=== PATIENT | female | born 1940 | race Caucasian/White ===

== ENCOUNTER 2019-10-21 23:20 | Emergency (ER) | payer MEDICARE, OTHER ==
[~2019-10-21] VITALS: Ht 167.6 cm; Wt 86.2 kg
[2019-10-22] MEDS ORDERED: SILVER NITRATE SWABS ONE (00:37)
[2019-10-22 02:31] VITALS: BP 142/70
== END 2019-10-22 01:36 | disposition home or self-care (01) ==
LOC: FSED 23:20
DX: S91.111A Laceration without foreign body of right great toe without damage to nail, initial encounter (principal); W26.8XXA Contact with other sharp object(s), not elsewhere classified, initial encounter; Y93.89 Activity, other specified; Y92.009 Unspecified place in unspecified non-institutional (private) residence as the place of occurrence of the external cause; Y99.8 Other external cause status; Z88.6 Allergy status to analgesic agent; Z88.1 Allergy status to other antibiotic agents; Z88.0 Allergy status to penicillin; Z85.3 Personal history of malignant neoplasm of breast
CPT/HCPCS: 85025; 85610; 99283

== ENCOUNTER 2020-06-23 09:54 | Inpatient (IN) | payer MEDICARE, OTHER ==
[~2020-06-23] VITALS: Ht 167.6 cm; Wt 90.7 kg
[2020-06-23 10:36] LABS: BASOPHILS % 0.5 % (0.0-1.0); EOSINOPHILS # (AUTO) 0.2 (0.0-0.4); EOSINOPHILS % 2.8 % (0.0-6.0); HEMATOCRIT 39.8 % (34.2-44.1); HEMOGLOBIN 13.1 g/dL (12.0-16.0); LYMPHOCYTES # (AUTO) 1.3 (1.0-3.2); LYMPHOCYTES % 21.3 % (18.0-39.1); MEAN CORPUSCULAR HEMOGLOBIN 28.5 pg (28-32); MEAN CORPUSCULAR HGB CONC 32.9 g/dL (31-35); MEAN CORPUSCULAR VOLUME 86.7 fL (81-99); MONOCYTES # (AUTO) 0.6 (0.2-0.8); MONOCYTES % 9.2 % (4.4-11.3); NEUTROPHILS % 65.9 % (38.7-80.0); PLATELET COUNT 179 x10e3/uL (140-360); RED BLOOD COUNT 4.59 x10e6/uL (3.6-5.1); RED CELL DISTRIBUTION WIDTH 12.8 % (11.7-14.4)
[2020-06-23] MEDS ORDERED: METOPROLOL TAR100 MG (10:43)
[2020-06-23] MEDS ORDERED: LEVOTHYROXINE25 MCG (10:43)
[2020-06-23] MEDS ORDERED: ATORVASTATIN CA40 MG (10:43)
[2020-06-23] MEDS ORDERED: GABAPENTIN300 MG (10:43)
[2020-06-23] MEDS ORDERED: GLIPIZIDE5 MG (10:43)
[2020-06-23] MEDS ORDERED: FUROSEMIDE20 MG (10:43)
[2020-06-23] MEDS ORDERED: LATANOPROST2.5 ML (10:43)
[2020-06-23] MEDS ORDERED: K DUR10 MEQ (10:43)
[2020-06-23] MEDS ORDERED: ALENDRONATE SOD70 MG (10:43)
--- OUTSIDE RECORDS SUMMARY | 2020-06-23 10:48 | XMS REPORT | Clinical Summary ---
Author Author [facility] Address Unknown Phone Unavailable Care Team Providers Care Sky Diver Name Role Phone Ayesha Rojas MD PCP [phone] Allergies Comments Active Allergy Reactions Severity Noted Date Codeine Itching 08/26/2014 Joint pain Levofloxacin 08/26/2014 Rash if injection Penicillins Rash Low 08/26/2014 Medications End Date Status Medication Sig Dispensed Refills Start Date Active metoprolol (LOPRESSOR) 50 Take 50 mg by 0 MG tablet mouth 2 (two) times daily. Active levothyroxine (SYNTHROID, Take 75 mcg 0 LEVOTHROID) 75 MCG tablet by mouth daily. Active warfarin (COUMADIN) 4 MG Take 4 mg by 0 tablet mouth daily 1 tablet Tues and Thurs and 0.5 tabs all other days. Active HYDROcodone-acetaminophen Take 1 tablet 0 (NORCO 5-325) 5-325 mg by mouth 3 per tabletIndications: (three) times pain daily. Active atorvastatin (LIPITOR) 40 Take 40 mg by 0 MG tablet mouth daily. Active coenzyme [id number] E 1 capsule. 0 01 (CO Q-10, WITH VIT E,) 8 100-5 mg-unit Cap Active tamoxifen (NOLVADEX) 20 TAKE ONE 0 MG tablet TABLET BY 9 MOUTH EVERY DAY Active gabapentin (NEURONTIN) TAKE 2 0 300 MG capsule CAPSULES BY 9 MOUTH EVERY MORNING AND 2 CAPSULES EVERY EVENING AND 3 CAPSULES AT BEDTIME Active lisinopril Take 10 mg by 0 (PRINIVIL,ZESTRIL) 10 MG mouth. 9 tablet Active latanoprost (XALATAN) 1 drop. 0 08/21/19 1 0.005 % ophthalmic 9 solution Active cyanocobalamin (VITAMIN Take 1,000 0 B-12) 1000 MCG tablet mcg by mouth. Active cholecalciferol (VITAMIN Take by 0 D3) 1,000 unit (25 mcg) mouth. tablet Active Problems Problem Noted Date Breast cancer, right 04/19/2017 Family History Relation Name Status Comments Father Mother Social History Date Tobacco Use Types Packs/Day Years Used Never Smoker Smokeless Tobacco: Never Used Drinks/Week oz/Week Comments Alcohol Use No Sex Assigned at Date Recorded Not on file Last Filed Vital Signs Not on file Plan of Treatment Health Maintenance Due Date Last Done Comments PNEUMOCOCCAL 65+ YRS (2 10/14/2003 03/02/2017 of 2 - PPSV23) MEDICARE ANNUAL WELLNESS 07/26/2009 (YEAR 2 or FIRST YEAR if no IPPE) INFLUENZA VACCINE (#1) 2020 05/03/2018, 05/21/2016 Results Not on fileafter 06/23/2019 Insurance Type Payer Benefit Subscriber ID Effective Phone Address Plan / Dates Group Maps Contracted [employer] TEX[employer] [id number] 2008-P HMO ALL resent -[id number] Advance Directives For more information, please contact: [phone] Date Inactivated Comments Code Status Date Activated 04/19/2017 4:50 PM Full Code 04/19/2017 9:58 AM This code status was determined by: Patient 08/27/2014 6:02 PM Full Code 08/27/2014 1:21 PM This code status was determined by: Patient
--- OUTSIDE RECORDS SUMMARY | 2020-06-23 10:48 | XMS REPORT | Continuity of Care Document ---
Author Author [facility] t Organization [facility] Address [address] [place] [address] Phone Unavailable Care Team Providers Care Export Agent Name Role Phone MARIO ALBERTO BUI, TOSIN PCP ANNA VASQUES Attphys Unavailable ISIDORO, MEÑO JUAREZ Attphys Unavailable ISIDORO, MEÑO JUAREZ Admphys Unavailable Payers Payer Name Policy Type Policy Number Effective Date Expiration Date Kizzy topete [facility] [id number] 2019 00:00:00 [facility] Problems Condition Name Condition Details Condition Category Status Onset Date Resolution Date Last Treatment Date Treating Clinician Comments Source Breast cancer, right Breast cancer, right Disease Active 00:00:00 [facility] Allergies, Adverse Reactions, Alerts Allergy Name Allergy Type Status Severity Reaction(s) Onset Date Inacti ve Date Treating Clinician Comments Source Penicillins DA Active U 2019-07-25 00:00:00 [facility] levofloxacin DA Active U 2019-07-25 00:00:00 [facility] Penicillins DA Active U 2015-11-19 00:00:00 [facility] Codeine Propensity to adverse reactions Active Itching 00:00:00 [facility] Levofloxacin Propensity to adverse reactions Active 201 11-23-01 00:00:00 Joint pain [facility] Penicillins Drug Allergy Active Rash 2014-08-26 00:00:00 Rash if injection [facility] Social History Social Habit Start Date Stop Date Quantity Comments Source Sex Assigned At [facility] Tobacco use and exposure 2019-05-02 00:00:00 2019-05-02 00:00:00 Reyes doherty used [facility] Alcohol intake 2019-05-02 00:00:00 2019-05-02 00:00:00 Current non-drinker of alcohol (finding) [facility] Alejandro doherty Smoking Status Start Date Stop Date Source Never smoker [facility] Medications Ordered Medication Name Filled Medication Name Start Date Stop Da te Current Medication? Ordering Clinician Indication Dosage Frequency Signature (SIG) Comments Components Source cyanocobalamin (VITAMIN B-12) 1000 MCG tablet 2019-05-02 11:43:4 7 Yes 1000ug Take 1,000 mcg by mouth. [facility] cholecalciferol (VITAMIN D3) 1,000 unit (25 mcg) tablet 2019-05-02 11:43:47 Yes Take by mouth. [facility] lisinopril (PRINIVIL,ZESTRIL) 10 MG tablet 2019-03-01 00:00:00 Yes 10mg Take 10 mg by mouth. [facility] gabapentin (NEURONTIN) 300 MG capsule 2019-02-28 00:00:00 Y es TAKE 2 CAPSULES BY MOUTH EVERY MORNING AND 2 CAPSULES EVERY EVENING AND 3 CAPSULES AT BEDTIME [facility] tamoxifen (NOLVADEX) 20 MG tablet 2018-11-30 00:00:00 Yes TAKE ONE TABLET BY MOUTH EVERY DAY [facility] latanoprost (XALATAN) 0.005 % ophthalmic solution 2018-08-21 00:00:00 Yes 1[drp] 1 drop. [facility] coenzyme K39-lddacen E (CO Q-10, WITH VIT E,) 100-5 mg-unit Cap 2017-08-11 00:00:00 Yes 1{capsule} 1 capsule. [facility] metoprolol (LOPRESSOR) 50 MG tablet 2017-04-19 14:50:40 Yes 50mg Q.5D Take 50 mg by mouth 2 (two) times daily. [facility] levothyroxine (SYNTHROID, LEVOTHROID) 75 MCG tablet 04-19 14:50:40 Yes 75ug QD Take 75 mcg by mouth daily. [facility] warfarin (COUMADIN) 4 MG tablet 2017-04-19 14:50:40 Yes 4mg QD Take 4 mg by mouth daily 1 tablet Tues and Thurs and 0.5 tabs all other days. [facility] HYDROcodone-acetaminophen (NORCO 5-325) 5-325 mg per tablet 2017-04-19 14:50:40 Yes pain 1{tbl} Q.[id number] 3D Take 1 tablet by mouth 3 (three) times daily. [facility] atorvastatin (LIPITOR) 40 MG tablet 2017-04-19 14:50:40 Yes 40mg QD Take 40 mg by mouth daily. [facility] Procedures This patient has no known procedures. Plan of Care Planned Activity Planned Date Details Comments Source Future Scheduled Test 2020-03-25 00:00:00 INFLUENZA VACCINE (#1) [code = INFLUENZA VACCINE (#1)] [facility] Future Scheduled Test 2009-07-26 00:00:00 MEDICARE ANNUAL WE LLNESS (YEAR 2 or FIRST YEAR if no IPPE) [code = MEDICARE ANNUAL WELLNESS (YEAR 2 or FIRST YEAR if no IPPE)] [facility] Future Scheduled Test 2003-10-14 00:00:00 PNEUMOCOCCAL 65+ Y RS (2 of 2 - PPSV23) [code = PNEUMOCOCCAL 65+ YRS (2 of 2 - PPSV23)] [facility] Encounters Start Date/Time End Date/Time Encounter Type Admission Type Attendi [facility] Care Department Encounter ID Source 2019-10-21 23:20:00 2019-10-22 01:36:00 Departed Emergency Room [facility] [id number] [facility] Results Test Description Test Time Test Comments Results Result Comments Source URINALYSIS COMPLETE 2019-07-25 21:38:00 Test Item UA COLOR (test code = COLU) RED YELLOW A UA APPEARANCE (test code = APPU) OPAQUE CLEAR A UA GLUCOSE DIPSTICK (test code = DGLUU) NEGATIVE mg/dL NEGATIVE UA BILIRUBIN DIPSTICK (test code = BILU) NEGATIVE NEGATIVE UA KETONE DIPSTICK (test code = KETU) NEGATIVE mg/dL NEGATIVE UA SPECIFIC GRAVITY (test code = SGU) 1.010 1.001-1.035 UA BLOOD DIPSTICK (test code = GILMA) 3+ (Large) NEGATIVE A UA PH DIPSTICK (test code = EDWARD) 7.0 5.0-8.0 UA PROTEIN DIPSTICK (test code = PROU) 100 (2+) mg/dL Neg-15 UA UROBILINIOGEN DIPSTICK (test code = URO) 0.0-0.2 (NORMAL) mg/dL 0.0-0.2 UA NITRITE DIPSTICK (test code = SETH) NEGATIVE NEGATIVE UA LEUKOCYTE ESTERASE W REFLEX (test code = LEUUR) 2+ NEG ATIVE A UA WBC (test code = WBCU) 21-50 per HPF 0-5 A UA RBC (test code = RBCU) >200 #/HPF 0-5 UA EPITHELIAL CELLS (test code = EPIU) None seen per HPF FEW UA BACTERIA (test code = BACU) NONE SEEN #/HPF NONE Urine Source? Clean CatchURINALYSIS [id number] 21:37:00* Test Item Value Reference Range Interpretation Comments UA COLOR (test code = COLU) RED YELLOW A UA APPEARANCE (test code = APPU) OPAQUE CLEAR A UA GLUCOSE DIPSTICK (test code = DGLUU) NEGATIVE mg/dL NEGATIVE UA BILIRUBIN DIPSTICK (test code = BILU) NEGATIVE NEGATIVE UA KETONE DIPSTICK (test code = KETU) NEGATIVE mg/dL NEGATIVE UA SPECIFIC GRAVITY (test code = SGU) 1.010 1.001-1.035 UA BLOOD DIPSTICK (test code = IGLMA) 3+ (Large) NEGATIVE A UA PH DIPSTICK (test code = EDWARD) 7.0 5.0-8.0 UA PROTEIN DIPSTICK (test code = PROU) 100 (2+) mg/dL Neg-15 UA UROBILINIOGEN DIPSTICK (test code = URO) 0.0-0.2 (NORMAL) mg/dL 0.0-0.2 UA NITRITE DIPSTICK (test code = SETH) NEGATIVE NEGATIVE UA LEUKOCYTE ESTERASE W REFLEX (test code = LEUUR) 2+ NEG ATIVE A UA WBC (test code = WBCU) per HPF 0-5 UA RBC (test code = RBCU) per HPF 0-5 UA EPITHELIAL CELLS (test code = EPIU) per HPF Few UA BACTERIA (test code = BACU) per HPF NONE Urine Source? Clean CatchBASIC METABOLIC [id number] 21:04:00* Test Item Value Reference Range Interpretation Comments SODIUM (test code = NA) 141 mmol/L 136-145 N POTASSIUM (test code = K) 4.0 mmol/L 3.5-5.1 N CHLORIDE (test code = CL) 107.0 mmol/L 98-107 N CARBON DIOXIDE (test code = CO2) 27.0 mmol/L 21-32 N ANION GAP (test code = GAP) 11.0 10-20 N GLUCOSE (test code = GLU) 155 mg/dL 74-106 H BLOOD UREA NITROGEN (test code = BUN) 23 mg/dL 7-18 H GLOMERULAR FILTRATION RATE (test code = GFR) 31 mL/min >=60 Estimated GFR by using Modified MDRD formula.Chronic kidney disease is defined as either kidney damageor GFR <60 mL/min/1.73 m2 for >3 months. CREATININE (test code = CREAT) 1.60 mg/dL 0.55-1.02 H Note change in reference range due to change in reagent. BUN/CREATININE RATIO (test code = BUN/CREA) 14.4 10-20 N CALCIUM (test code = CA) 8.5 mg/dL 8.5-10.1 N HEPATIC FUNCTION [id number] 21:04:00* Test Item Value Reference Range Interpretation Comments TOTAL PROTEIN (test code = PROT) 6.2 gram/dL 6.4-8.2 L ALBUMIN (test code = ALB) 3.0 g/dL 3.4-5.0 L GLOBULIN (test code = GLOB) 3.2 gram/dL 2.7-4.2 N ALBUMIN/GLOBULIN RATIO (test code = A/G) 0.9 0.75-1.50 N BILIRUBIN TOTAL (test code = BILT) 0.50 mg/dL 0.0-1.0 N BILIRUBIN DIRECT (test code = BILD) 0.10 mg/dL 0.0-0.20 N SGOT/AST (test code = AST) 17 IUnit/L 15-37 N SGPT/ALT (test code = ALT) 19 IUnit/L 12-78 N ALKALINE PHOSPHATASE TOTAL (test code = ALKP) 74 IUnit/L 45-117 N Note change in reference range due to change in reagent. BASIC METABOLIC [id number] 20:54:00* Test Item Value Reference Range Interpretation Comments SODIUM (test code = NA) 141 mmol/L 136-145 N POTASSIUM (test code = K) 4.0 mmol/L 3.5-5.1 N CHLORIDE (test code = CL) 107.0 mmol/L 98-107 N CARBON DIOXIDE (test code = CO2) mmol/L 21-32 ANION GAP (test code = GAP) 10-20 GLUCOSE (test code = GLU) mg/dL 74-106 BLOOD UREA NITROGEN (test code = BUN) mg/dL 7-18 GLOMERULAR FILTRATION RATE (test code = GFR) mL/min >=60 CREATININE (test code = CREAT) mg/dL 0.55-1.02 BUN/CREATININE RATIO (test code = BUN/CREA) 10-20 CALCIUM (test code = CA) mg/dL 8.5-10.1 HEPATIC FUNCTION [id number] 20:54:00* Test Item Value Reference Range Interpretation Comments TOTAL PROTEIN (test code = PROT) gram/dL 6.4-8.2 ALBUMIN (test code = ALB) g/dL 3.4-5.0 GLOBULIN (test code = GLOB) gram/dL 2.7-4.2 ALBUMIN/GLOBULIN RATIO (test code = A/G) 0.75-1.50 BILIRUBIN TOTAL (test code = BILT) mg/dL 0.0-1.0 BILIRUBIN DIRECT (test code = BILD) mg/dL 0.0-0.20 SGOT/AST (test code = AST) IUnit/L 15-37 SGPT/ALT (test code = ALT) IUnit/L 12-78 ALKALINE PHOSPHATASE TOTAL (test code = ALKP) IUnit/L 45-117 CBC W/O [id number] 20:51:00* Test Item Value Reference Range Interpretation Comments WHITE BLOOD CELL (test code = WBC) 6.5 K/mm3 4.5-12.5 N RED BLOOD CELL (test code = RBC) 4.19 mill/mm3 3.7-5.2 N HEMOGLOBIN (test code = HGB) 12.1 gram/dL 11.5-15.5 N HEMATOCRIT (test code = HCT) 36.1 % 36.0-46.0 N MEAN CELL VOLUME (test code = MCV) 86.2 fL 80-98 N MEAN CELL HGB (test code = MCH) 28.9 picogram 27.0-33.0 N MEAN CELL HGB CONCETRATION (test code = MCHC) 33.5 gram/dL 33.0-36. 0 N RED CELL DISTRIBUTION WIDTH (test code = RDW) 13.0 % 11.6-16. 2 N PLATELET COUNT (test code = PLT) 192 K/mm3 150-450 N MEAN PLATELET VOLUME (test code = MPV) 9.2 fL 6.7-11.0 N PROTHROMBIN [id number] 20:49:00* Test Item Value Reference Range Interpretation Comments PROTHROMBIN TIME PATIENT (test code = PTP) 40.9 seconds 9.0-14.0 H INTERNATIONAL NORMAL RATIO (test code = INR) 3.5 0.8-1.2 H The therapeutic range for oral anticoagulant therapy formost indications is an international normalized ratio (INR)of between 2.0 and 3.0. The recommended therapeutic INRrange for various clinical situations is listed below: Clinical Situation INR range Pulmonary e mbolism treatment (2.0-3.0)Venous thrombosis treatmentVenous thrombosis prophylaxis (high risk surgery)Prevention of systemic embolism from: Acute myocardial infarction Valvular heart disease Atrial fibrillation Mechanical prosthetic heart valves (2.5-3.5) IS PATIENT ON ANTICOAGULANTS? NCBC W/O [id number] 20:46:00* Test Item Value Reference Range Interpretation Comments WHITE BLOOD CELL (test code = WBC) K/mm3 4.5-12.5 RED BLOOD CELL (test code = RBC) mill/mm3 3.7-5.2 HEMOGLOBIN (test code = HGB) 12.1 gram/dL 11.5-15.5 N HEMATOCRIT (test code = HCT) 36.1 % 36.0-46.0 N MEAN CELL VOLUME (test code = MCV) fL 80-98 MEAN CELL HGB (test code = MCH) picogram 27.0-33.0 MEAN CELL HGB CONCETRATION (test code = MCHC) gram/dL 33.0-36. 0 RED CELL DISTRIBUTION WIDTH (test code = RDW) % 11.6-16. 2 PLATELET COUNT (test code = PLT) K/mm3 150-450 MEAN PLATELET VOLUME (test code = MPV) fL 6.7-11.0 B-TYPE NATRIURETIC FACTOR (BNP)2019-05-02 12:30:00* Test Item Value Reference Range Interpretation Comments B-TYPE NATRIURETIC PEPTIDE (BEAKER) (test code = 700) 239 pg/mL 0-100 H RAPID TROPONIN [id number] 12:27:00* Test Item Value Reference Range Interpretation Comments RAPID TROPONIN I (BEAKER) (test code = 1483) < ng/mL <0.05 BASIC METABOLIC [id number] 12:26:00* Test Item Value Reference Range Interpretation Comments SODIUM (BEAKER) (test code = 381) 141 meq/L 135-148 POTASSIUM (BEAKER) (test code = 379) 4.6 meq/L 3.6-5.5 CHLORIDE (BEAKER) (test code = 382) 104 meq/L 98-106 CO2 (BEAKER) (test code = 355) 21 meq/L 24-32 L BLOOD UREA NITROGEN (BEAKER) (test code = 354) 21 mg/dL 10-26 CREATININE (BEAKER) (test code = 358) 1.05 mg/dL 0.50-1.20 GLUCOSE RANDOM (BEAKER) (test code = 652) 119 mg/dL 70-110 H CALCIUM (BEAKER) (test code = 697) 9.4 mg/dL 8.5-10.5 EGFR (BEAKER) (test code = 1092) 50 mL/min/1.73 sq m ESTIMATED GFR IS NOT ACCURATE CREATININE CLEARANCE IN PREDICTING GLOMERULAR FILTRATION RATE. ESTIMATED GFR IS NOT APPLICABLE FOR DIALYSIS PATIENTS. [id number] 12:26:00* Test Item Value Reference Range Interpretation Comments MAGNESIUM (BEAKER) (test code = 627) 1.7 mg/dL 1.5-3.0 PT/[id number] 12:26:00* Test Item Value Reference Range Interpretation Comments PROTIME (BEAKER) (test code = 759) 11.4 seconds 9.8-12.0 INR (BEAKER) (test code = 370) 1.1 <=5.9 PARTIAL THROMBOPLASTIN TIME (BEAKER) (test code = 760) 24.0 seconds 25.8-34.5 L RECOMMENDED COUMADIN/WARFARIN INR THERAPY RANGESSTANDARD DOSE: 2.0 - 3.0 Inclu martha: PROPHYLAXIS for venous thrombosis, systemic embolization; TREATMENT for diane ous thrombosis and/or pulmonary embolus.HIGH RISK: Target INR is 2.5-3.5 for pat ients with mechanical heart valves.CBC W/PLT COUNT & AUTO [id number] 12:19:00* Test Item Value Reference Range Interpretation Comments WHITE BLOOD CELL COUNT (BEAKER) (test code = 775) 9.7 K/ L 4.0- 10.0 RED BLOOD CELL COUNT (BEAKER) (test code = 761) 5.24 M/ L 4.00-5 .00 H HEMOGLOBIN (BEAKER) (test code = 410) 15.6 GM/DL 12.0-15.0 H HEMATOCRIT (BEAKER) (test code = 411) 45.9 % 36.0-45.0 H MEAN CORPUSCULAR VOLUME (BEAKER) (test code = 753) 87.6 fL 82. 0-99.0 MEAN CORPUSCULAR HEMOGLOBIN (BEAKER) (test code = 751) 29.8 pg 27.0-33.0 MEAN CORPUSCULAR HEMOGLOBIN CONC (BEAKER) (test code = 752) 34.0 GM/DL 32.0-36.0 RED CELL DISTRIBUTION WIDTH (BEAKER) (test code = 412) 11.3 % 10.3-14.2 PLATELET COUNT (BEAKER) (test code = 756) 222 K/CU MM 150-430 MEAN PLATELET VOLUME (BEAKER) (test code = 754) 7.2 fL 6.5-10 .5 NEUTROPHILS RELATIVE PERCENT (BEAKER) (test code = 429) 80 % LYMPHOCYTES RELATIVE PERCENT (BEAKER) (test code = 430) 12 % MONOCYTES RELATIVE PERCENT (BEAKER) (test code = 431) 7 % EOSINOPHILS RELATIVE PERCENT (BEAKER) (test code = 432) 1 % BASOPHILS RELATIVE PERCENT (BEAKER) (test code = 437) 0 % NEUTROPHILS ABSOLUTE COUNT (BEAKER) (test code = 670) 7.80 K/ L 1.80-8.00 LYMPHOCYTES ABSOLUTE COUNT (BEAKER) (test code = 414) 1.12 K/ L 1.48-4.50 L MONOCYTES ABSOLUTE COUNT (BEAKER) (test code = 415) 0.66 K/ L 0. 00-1.30 EOSINOPHILS ABSOLUTE COUNT (BEAKER) (test code = 416) 0.10 K/ L 0.00-0.50 BASOPHILS ABSOLUTE COUNT (BEAKER) (test code = 417) 0.04 K/ L 0. 00-0.20 RAD, CHEST, PA OR AP, 1 [id number] 12:17:00Reason for exam:-> palpitationsShould this be performed at the bedside?->NoFINAL REPORT INDICATION: palpitations COMPARISON: June 23, 2010 TECHNIQUE: Single frontal view of the chest. FINDINGS: Lungs and pleura: Clear lungs. No effusion.Heart and mediastinum: Normal heart size. Unremarkable mediastinal contours.Osseous structures: No acute abnormality.Other: None. IMPRESSION: No acute intrathoracic abnormality. Signed: JR Miles Robert MDReport Verified Date/Time: 05/02/2019 12:17:02 Reading Location: [facility] Radiology Reading Room UE [id number] 07:57:00Surgical Pathology Report Case: [id number] Authorizing Provider: Omar Campbell MD Collected: 04/19/2017 1158 Ordering Location: [facility] Received: 04/19/2017 1249 SERVICES Pathologist: Tamara Ibrahim MD Specimens: A) - Breast, Right, right breast lumpectomy, short stitch superior, long stitch lateral B) - Lymph Node, [place], Right Axilla, right axillary sentinel lymph node REASON FOR ADDENDUM: TO REPORT ONCOTYPE RESULT.RECURRENCE SCORE RESULT: [id number] RISK OF DISTANT RECURRENCE: AADIR ALONE 9% Addendum electronically signed by Tamara Ibrahim MD on 06/23/2017 at 7:57 AMA. BREAST, RIGHT, LUMPECTOMY: - INFILTRATING LOBULAR CARCINOMA, VARIANT SUBTYPE - GREATEST MACROSCOPIC DIMENSION:19 MM - HISTOLOGIC GRADE: 2/3 (3+2+2)BY ESBR CRITERIA - MITOTIC INDEX: 16 MITOSIS /10 HPF - NO LYMPHOVASCULAR INVASION SEEN - SURGICAL MARGINS: NEGATIVE - POSTERIOR MARGIN AT 2 MM - ANTERIOR MARGIN AT 5 MM - ALL OTHER MARGINS AT MORE THAN 10 MM - LOBULAR CARCINOMA IN SITU, FOCAL - ATYPICAL LOBULAR HYPERPLASIA - COLUMNAR CELL HYPERPLASIA - COLUMNAR CELL CHANGES - BIOPSY SITE (CLIP X 1) IDENTIFIED - MICROCALCIFICATIONS ASSOCIATED WITH BENIGN DUCTS B. LYMPH NODE, RIGHT SENTINEL, BIOPSY: - TWO BENIGN LYMPH NODES (0/2) - CONFIRMED BY N EGATIVE TREJO-CYTOKERATIN IMMUNOSTAIN Signing Pathologist Direct Phone Line: [phone] signed by Tamara Ibrahim MD on 04/25/2017 at 5 :26 PMTUMOR STAGING (PATHOLOGY): Anatomic site of tumor: Right breast Histologic type: Infiltrating lobular carcinoma, variant subtypeHistologic grade: 2/3 by E SBR criteria Tumor size: 19 mm Primary tumor (T): pT1c Lymph node (N): pN0 (sn) Stage grouping: IA Margins: Negative LYMPH NODE SUMMARY:Total number of sentinel lymph nodes: 2Total number of non-sentinel lymph nodes: 0 Total number of posit raquel sentinel lymph nodes: 0 INVASIVE CARCINOMA OF THE BREAST (Breast Invasive - All Specimens)SPECIMEN Procedure: Excision without image-guided localizati on Lymph Node Sampling: [place] lymph node(s) Specimen Laterality: Ri ghtTUMOR Presence of Invasive Carcinoma: Histologic Type: Invasive lobular carcinoma Histologic Grade (Raymond Histologic Score): Glandular (Acinar) / Tubular Differentiation: Score 3 (< 10% of tumor area forming glandular / tubular structures) Nuclear Pleomorphism: Score 2 (Cells larger than normal with open vesicular nuclei, visible nucleoli, and moderate variability in both size and shape) Mitotic Rate: Score 2 (4-7 mitoses per mm2) Overall Grade: Grade 2 (scores of 6 or 7) Ductal Carcinoma In Situ (DCIS): No DCIS is present Lobular Carcinoma In Situ (LCIS): Present Tumor Size / Focality: Tumor Size: Size of Largest Invasive Carcinoma: Greatest dimension of largest focus of invasion > 1 mm Greatest Dimension (mm): 19 mm Lymph-Vascular Invasion: Not identified Microcalcifications: Present in nonneoplastic tissue Niraj atment Effect: Response to Presurgical (Neoadjuvant) Therapy: No known presur gical therapyMARGINS Invasive Carcinoma: Margins uninvolved by invasive car cinoma Distance from Closest Margin: Distance (specify in mm): 2MM Cl osest Uninvolved Margin: Posterior Ductal Carcinoma In Situ (DCIS): DCIS not present in specimenLYMPH NODES Regional Lymph Nodes: [place] Node Status: [place] lymph node biopsy performed Number of [place] Nodes Examined: Specify number: 2 Method of Evaluation of [place] Lymph Nod e(s): H&E, multiple levels Method of Evaluation of [place] Lymph Node(s): Immunohistochemistry Number of Lymph Node(s) Examined (sentinel and nonsentinel): Specify number: 2STAGE (pTNM) Primary Tumor (Invasive Carcinoma) (pT): pT1c: Tumor > 10 mm but <= 20 mm in greatest dimension Modifier: (sn): Only sentinel node(s) evaluated. If 6 or more nodes (sentinel or nonsentinel) are removed, this modifier should not be used. Category (pN): pN0: No regional lymph node metastasis identified histologicallyA. 50040Z. 44734, 54096, 91129Vcbexa cancer upper outer quadrant of right female breastA. Right breast, description "right breast lumpectomy, short superior, long stitch lateral; B. Right axillary sentinel lymph nodePart A: The specimen is received in formalin labeled with the patient's name, medical record number and "right breast" with the description "right breast lumpectomy, short stitch superior, long stitch lateral". It consists of a 9.5 gm, 6 cm from superior to inferior, 6 cm from medial to lateral and 2.5 cm from superficial to deep, morgan-yellow lumpectomy specimen. There is a short designating superior and a long stitch designating lateral. No guide wire is present.The specimen is serially sectioned from medial to lateral into 9 slices. A ggz-tdd-lmfjp, irregular, firm lesion is identified in slices #3 to 7. The lesion measures 1.4 cm from superior to inferior, 2.5 cm from medial to lateral and 1.3 cm from superficial to deep. It is located 2 cm from superior margin, 0.8 cm from the inferior margin, 0.7 cm from the medial margin, 1 cm from the lateral margin, and 1 cm from the anterior margin. The lesion abuts the deep margin. There is another morgan-white rubbery lesion identified in slices #2 and 3. It measures 1 cm from superior to inferior, 0.8 cm from medial to lateral and 0.9 cm from superficial to deep. It abuts the anterior and deep margins. A ribbon shaped metal clip is identified a ssociated with the lesion. The remainder of the breast tissue is composed of 80% adipose and 20% fibrous tissue.Ink code: Superior-blue, inferior-red, posterior- black, anterior-yellow.Section code: career representative sections are submitted as olayinka schmidt. A1-A3, medial margin perpendicular section in its entirety; A4-A5, slice #2; A6-A8, slice #3 entirely; A9-A13, slice #4 entirely; A14-A19, slice #5 enti rely; A20-A22, slice #6 mass; A23, slice #7 mass; A24, slice #8 area lateral to mass; A25-A28, slice #9, lateral margin perpendicular section in its entirety. L S/ewPart B: Received in formalin labeled "lymph node, sentinel, right axilla" is a 6.5 x 4.0 x 2.5 cm aggregate of yellow-morgan adipose tissue. Sectioning reveals two pink-morgan to yellow possible lymph nodes each measuring 2.0 cm in greatest d imension.The lymph nodes are bisected and entirely submitted in cassettes B1-B2 with one bisected lymph node in each cassette. DB/Josie. - B. Performed.The follow ing special studies were performed on this case and the interpretation is incorp orated in the diagnostic report above:TREJO-CYTOKERATIN PERFORMED ON BLOCKS B1 AND B2The immunohistochemistry test was developed and its performance characteristi cs determined by [facility], Pathology Laboratory. It has not been cleared or approved by the U.S. Food and Drug Administration. The FDA has d etermined that such clearance or approval is not necessary. The test is used for clinical purposes. It should not be regarded as investigational or for research. This laboratory is certified under the Clinical Laboratory Improvement Amendme nts of 1987 (CLIA-88) as qualified to perform high complexity clinical laborator y testing.[facility], Department of Pathology, [address] [place] [address], [place] [address], EHNJFFLEWOS TIME/[id number] 10:32:00* Test Item Value Reference Range Interpretation Comments PROTIME (BEAKER) (test code = 759) 14.7 seconds 11.7-14.7 INR (BEAKER) (test code = 370) 1.2 <=5.9 RECOMMENDED COUMADIN/WARFARIN INR THERAPY RANGESSTANDARD DOSE: 2.0 - 3.0 Inclu martha: PROPHYLAXIS for venous thrombosis, systemic embolization; TREATMENT for diane ous thrombosis and/or pulmonary embolus.HIGH RISK: Target INR is 2.5-3.5 for pat ients with mechanical heart valves.
[2020-06-23 10:53] LABS: INR 2.14; PARTIAL THROMBOPLASTIN TIME 34.9 seconds (23.8-35.5); PROTHROMBIN TIME 24.9 seconds (11.9-14.5)
--- NOTE | 2020-06-23 10:54 | Diagnostic Imaging Report ---
EXAMINATION: CHEST SINGLE (PORTABLE) INDICATION: Shortness of breath COMPARISON: None FINDINGS: LINES/TUBES:EKG leads overlie the chest. LUNGS:The lungs are well-inflated. No focal consolidation or pulmonary edema. PLEURA:No pleural effusion or pneumothorax. MEDIASTINUM:The cardiomediastinal silhouette appears normal in size and shape. Atherosclerotic calcifications of the thoracic aorta. BONES/SOFT TISSUES:No acute osseous injury. ABDOMEN:No free air under the diaphragm. IMPRESSION: No focal pneumonia or pulmonary edema. Signed by: Dean Rhoades MD on 06/23/2020 10:51 AM
[2020-06-23] MEDS ORDERED: WARFARIN SODIUM4 MG (10:58)
[2020-06-23 10:59] LABS: ALBUMIN 3.5 g/dL (3.5-5.0); ALBUMIN/GLOBULIN RATIO 1.1 (0.8-2.0); ANION GAP 14.8 mmol/L (8-16); CALCIUM 8.6 mg/dL (8.4-10.2); CREATININE, SERUM 1.11 mg/dL (0.57-1.11); POTASSIUM 3.8 mmol/L (3.5-5.1)
[2020-06-23 11:08] LABS: CREATINE KINASE MB 2.2 ng/mL (0-5.0)
--- NOTE | 2020-06-23 11:08 | Emergency Department Note ---
History of Present Illnes History of Present Illness Chief Complaint: Respiratory History of Present Illness This is a 79 year old female PATIENT IN FROM HOME WITH COMPLAINTS OF SHORTNESS OF BREATH ON EXERTION; WORSENING SINCE TUESDAY. PATIENT REPORTS HISTORY OF CHF, STATES DR LLANES SENT HER TO THE ER FOR EVALUATION. PATIENT STATES THAT WALKING MAKES THE SHORTNESS OF BREATH WORSE, AND SITTING STILL MAKES IT BETTER. PATIENT TACHYPNEIC DURING TRIAGE, O2 SATS 978% ON ROOM AIR. 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 Any updates have been documented here. Past Medical History Recent Fever: No Clinical Suspicion of Infectio: No New/Unexplained Change in Ment: No Past Medical History: Hypertension, Diabetes, CHF, A-Fib, Hypothyroidism, Cancer, Hyperlipedemia Other Medical History: HEART MUMUR POSSIBLE BREAST CANCER OSTEOPOROSIS Other Surgery: BREAST LUMPECTOMY Social History Smoking Cessation: Never Smoker Counseling Performed: No Alcohol Use: None Any Illegal Drug Use: No TB Exposure/Symptoms: No Physically hurt or threatened: No Family History Family history of heart diseas: No Other Any Pre-Existing Lines (PICC,: No Review of Systems Review of Systems Constitutional: Reports no symptoms EENTM: Reports no symptoms Cardiovascular: Reports edema Respiratory: Reports as per HPI, Reports dyspnea, Reports dyspnea on exertion Gastrointestinal: Reports no symptoms Genitourinary: Reports no symptoms Musculoskeletal: Reports no symptoms Integumentary: Reports no symptoms Neurological: Reports no symptoms Psychological: Reports no symptoms Endocrine: Reports no symptoms Hematological/Lymphatic: Reports no symptoms Physical Exam Related Data Allergies: Coded Allergies: Penicillins (Verified Allergy, Severe, ITCHING, 06/23/20) Triage Vital Signs Vital Signs Date Time Temp Pulse Resp B/P (MAP) Pulse Ox O2 Delivery O2 Flow Rate FiO2 06/23/20 09:54 98.2 76 30 161/76 98 Room Air Vital signs reviewed: Yes Physical Exam CONSTITUTIONAL Constitutional: Present well-developed, Present well-nourished HENT HENT: Present normocephalic, Present atraumatic, Present oropharynx clear/moist, Present nose normal HENT L/R: Present left ext ear normal, Present right ext ear normal EYES Eyes: Reports PERRL, Reports conjunctivae normal NECK Neck: Present ROM normal PULMONARY Pulmonary: Present effort normal, Present respiratory distress (TACHYPNEIC ~26 BUT PT APPEARS COMFORTABLE) CARDIOVASCULAR Cardiovascular: Present regular rhythm, Present heart sounds normal, Present capillary refill normal, Present normal rate, Present murmur (2/6 HIGH-PITCHED SYS MURMUR) GASTROINTESTINAL Abdominal: Present soft, Present nontender, Present bowel sounds normal GENITOURINARY Genitourinary: Present exam deferred SKIN Skin: Present warm, Present dry MUSCULOSKELETAL Musculoskeletal: Present ROM normal, Present edema (2+ EDEMA LEFT LE, 1+ RLE - STATES THIS IS CHRONIC, (-) HILARY'S/NO CALF TTP) NEUROLOGICAL Neurological: Present alert, Present oriented x 3, Present no gross motor or sensory deficits PSYCHOLOGICAL Psychological: Present mood/affect normal, Present judgement normal Results Laboratory Result Diagram: 06/23/20 1020 Laboratory Laboratory Tests Test 06/23/20 10:20 White Blood Count 6.06 x10e3/uL (4.8-10.8) Red Blood Count 4.59 x10e6/uL (3.6-5.1) Hemoglobin 13.1 g/dL (12.0-16.0) Hematocrit 39.8 % (34.2-44.1) Mean Corpuscular Volume 86.7 fL (81-99) Mean Corpuscular Hemoglobin 28.5 pg (28-32) Mean Corpuscular Hemoglobin Concent 32.9 g/dL (31-35) Red Cell Distribution Width 12.8 % (11.7-14.4) Platelet Count 179 x10e3/uL (140-360) Neutrophils (%) (Auto) 65.9 % (38.7-80.0) Lymphocytes (%) (Auto) 21.3 % (18.0-39.1) Monocytes (%) (Auto) 9.2 % (4.4-11.3) Eosinophils (%) (Auto) 2.8 % (0.0-6.0) Basophils (%) (Auto) 0.5 % (0.0-1.0) Neutrophils # (Auto) 4.0 (2.1-6.9) Lymphocytes # (Auto) 1.3 (1.0-3.2) Monocytes # (Auto) 0.6 (0.2-0.8) Eosinophils # (Auto) 0.2 (0.0-0.4) Basophils # (Auto) 0.0 (0.0-0.1) Absolute Immature Granulocyte (auto 0.02 x10e3/uL (0-0.1) Lab results reviewed: Yes Imaging Imaging results reviewed: Yes Impressions EXAMINATION: CHEST SINGLE (PORTABLE) INDICATION: Shortness of breath COMPARISON: None FINDINGS: LINES/TUBES:EKG leads overlie the chest. LUNGS:The lungs are well-inflated. No focal consolidation or pulmonary edema. PLEURA:No pleural effusion or pneumothorax. MEDIASTINUM:The cardiomediastinal silhouette appears normal in size and shape. Atherosclerotic calcifications of the thoracic aorta. BONES/SOFT TISSUES:No acute osseous injury. ABDOMEN:No free air under the diaphragm. IMPRESSION: No focal pneumonia or pulmonary edema. Signed by: Dean Rhoades MD on 06/23/2020 10:51 AM Procedures 12 Lead ECG Interpretation ECG Interpretation : ECG: ECG 1 Pit Shovel Operator: Interpreted by ED physician Date: Jun 23, 2020 Time: 10:21 Rhythm: sinus rhythm Rate: normal BPM: 64 QRS axis: left Conduction: LAFB ST segments normal: Yes T waves normal: Yes Other findings: LVH Clinical Impression: abnormal ECG Assessment & Plan Medical Decision Making MDM SOB/DELGADO, TACHYPNEIC - CBC, CHEM, ECG, CARDIACS, BNP, CXR, COVID SWAB - R/O CHF, RENAL INSUFF, STEMI/NSTEMI, COVID19 Reassessment Reassessment ADMIT TO DR MILLS FOR CHF EXAC. 1315 - PT REFUSING ADMISSION, SAYS SHE IS GOING HOME. I EXPLAINED MY CONCERN THAT HER RR WAS 30 - SHE UNDERSTANDS RISK INCLUDING WORSENING/ AND STILL WANTS TO LEAVE DESPITE MY BEST EFFORTS TO CARE FOR HER. 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 CURRENTLY Assessment & Plan Final Impression: (1) CHF exacerbation Depart Disposition: HOME, SELF-CARE Last Vital Signs Date Time Temp Pulse Resp B/P (MAP) Pulse Ox O2 Delivery O2 Flow Rate FiO2 06/23/20 09:54 98.2 76 30 161/76 98 Room Air Home Meds Reported Medications Warfarin Sodium (WARFARIN SODIUM) 4 Mg Tablet 06/23/20 Alendronate Sodium (ALENDRONATE SODIUM) 70 Mg Tablet 06/23/20 Levothyroxine Sodium (LEVOTHYROXINE SODIUM) 25 Mcg Tablet 06/23/20 Glipizide (GLIPIZIDE) 5 Mg Tablet 06/23/20 Latanoprost (LATANOPROST) 2.5 Ml Drops 06/23/20 Furosemide (FUROSEMIDE) 20 Mg Tablet 06/23/20 Potassium Chloride* (K DUR*) 10 Meq Tabcr 06/23/20 Atorvastatin Calcium (ATORVASTATIN CALCIUM) 40 Mg Tablet 06/23/20 Metoprolol Tartrate (METOPROLOL TARTRATE) 100 Mg Tablet 06/23/20 Gabapentin (GABAPENTIN) 300 Mg Capsule 06/23/20 DARIAN SEBASTIAN MD Jun 23, 2020 11:08
[2020-06-23] MEDS ORDERED: FUROSEMIDE INJ 10 MG/ML 4 ML VIAL IV ONE (12:00)
[2020-06-23 12:18] LABS: BILIRUBIN,URINE NEGATIVE (NEGATIVE); CLARITY,URINE CLEAR (CLEAR); COLOR,URINE YELLOW (YELLOW); KETONES,URINE NEGATIVE (NEGATIVE); LEUKOCYTE ESTERASE ,URINE SMALL (NEGATIVE); NITRITE,URINE NEGATIVE (NEGATIVE); PROTEIN,URINE DIPSTICK NEGATIVE (NEGATIVE); URINE UROBILINOGEN 0.2 mg/dL (0.2 - 1)
[2020-06-23 12:25] LABS: EPITHELIAL CELLS,URINE FEW /LPF; MUCUS,URINE FEW (RARE); RBC,URINE 0-5 /HPF (0-5); RENAL EPITHELIAL CELLS,URINE FEW
--- OUTSIDE RECORDS SUMMARY | 2020-06-23 12:51 | XMS REPORT | Clinical Summary ---
Author Author [facility] Address Unknown Phone Unavailable Care Team Providers Care Window Caser Name Role Phone Ayesha Rojas MD PCP Allergies Comments Active Allergy Reactions Severity Noted [...] 0 MG tablet mouth daily. Active coenzyme B20-gvzyfgh E 1 capsule. 0 01 (CO Q-10, [...] / Dates Group Maps Contracted [employer] TEX[employer] [id number] 2008-P HMO ALL resent -[id number] Advance Directives For more information, please contact: [phone] Date Inactivated Comments Code Status Date Activated 04/19/2017 4:50 PM Full Code 04/19/2017 9:58 AM This code status was determined by: Patient 08/27/2014 6:02 PM Full Code 08/27/2014 1:21 PM This code status was determined by: Patient
--- OUTSIDE RECORDS SUMMARY | 2020-06-23 12:51 | XMS REPORT | Continuity of Care Document ---
Author Author [facility] t Organization [facility] Address [address] [place] [address] Phone Unavailable Care Team Providers Care Marketing Services Manager Name Role Phone MARIO ALBERTO BUI, TOSIN PCP Jaleesa SEBASTIAN Attphys Unavailable ANNA VASQUES Attphys Unavailable MEÑO CHAUDHRY Attphys Unavailable ISIDORO, MEÑO JUAREZ Admphys Unavailable Payers Payer Name Policy Type Policy Number Effective Date Expiration Date Kizzy topete [facility] [id number] 2019 00:00:00 [facility] Problems Condition Name Condition Details Condition Category Status Onset Date Resolution Date Last Treatment Date Treating Clinician Comments Source Breast cancer, right Breast cancer, right Disease Active 00:00:00 [facility] Allergies, Adverse Reactions, Alerts Allergy Name Allergy Type Status Severity Reaction(s) Onset Date Inacti ve Date Treating Clinician Comments Source Penicillins DA Active U 2019-07-25 00:00:00 [facility] levofloxacin DA Active U 2019-07-25 00:00:00 [facility] Penicillins DA Active U 2015-11-19 00:00:00 [facility] Codeine Propensity to adverse reactions [facility] Propensity to adverse reactions Active 201 11-23-01 00:00:00 Joint pain [facility] Penicillins Drug Allergy Active Rash 2014-08-26 00:00:00 Rash if injection [facility] Social History Social Habit Start Date Stop Date Quantity Comments Source Sex Assigned At [facility] Tobacco use and exposure 2019-05-02 00:00:00 2019-05-02 00:00:00 Reyes doherty used [facility] Alcohol intake 2019-05-02 00:00:00 2019-05-02 00:00:00 Current non-drinker of alcohol (finding) [facility] Alejandro doherty Smoking Status Start Date Stop Date Source Never smoker [facility] Medications Ordered Medication Name Filled Medication Name Start Date Stop Da te Current Medication? Ordering Clinician Indication Dosage Frequency Signature (SIG) Comments Components Source cyanocobalamin (VITAMIN B-12) 1000 MCG tablet 2019-05-02 11:43:4 7 Yes 1000ug Take 1,000 mcg by mouth. [facility] cholecalciferol (VITAMIN D3) 1,000 unit (25 mcg) tablet 2019-05-02 11:43:47 Yes Take by mouth. [facility] lisinopril (PRINIVIL,ZESTRIL) 10 MG tablet 2019-03-01 00:00:00 Yes 10mg Take 10 mg by mouth. [facility] gabapentin (NEURONTIN) 300 MG capsule 2019-02-28 00:00:00 Y es TAKE 2 CAPSULES BY MOUTH EVERY MORNING AND 2 CAPSULES EVERY EVENING AND 3 CAPSULES AT BEDTIME [facility] tamoxifen (NOLVADEX) 20 MG tablet 2018-11-30 00:00:00 Yes TAKE ONE TABLET BY MOUTH EVERY DAY [facility] latanoprost (XALATAN) 0.005 % ophthalmic solution 2018-08-21 00:00:00 Yes 1[drp] 1 drop. [facility] coenzyme X87-axpxhtj E (CO Q-10, WITH VIT E,) 100-5 mg-unit Cap 2017-08-11 00:00:00 Yes 1{capsule} 1 capsule. [facility] metoprolol (LOPRESSOR) 50 MG tablet 2017-04-19 14:50:40 Yes 50mg Q.5D Take 50 mg by mouth 2 (two) times daily. [facility] levothyroxine (SYNTHROID, LEVOTHROID) 75 MCG tablet 04-19 14:50:40 Yes 75ug QD Take 75 mcg by mouth daily. [facility] warfarin (COUMADIN) 4 MG tablet 2017-04-19 14:50:40 Yes 4mg QD Take 4 mg by mouth daily 1 tablet Tues and Thurs and 0.5 tabs all other days. [facility] HYDROcodone-acetaminophen (NORCO 5-325) 5-325 mg per tablet 2017-04-19 14:50:40 Yes pain 1{tbl} Q.[id number] 3D Take 1 tablet by mouth 3 (three) times daily. [facility] atorvastatin (LIPITOR) 40 MG tablet 2017-04-19 14:50:40 Yes 40mg QD Take 40 mg by mouth daily. [facility] Procedures This patient has no known procedures. Plan of Care Planned Activity Planned Date Details Comments Source Future Scheduled Test 2020-03-25 00:00:00 INFLUENZA VACCINE (#1) [code = INFLUENZA VACCINE (#1)] [facility] Future Scheduled Test 2009-07-26 00:00:00 MEDICARE ANNUAL WE LLNESS (YEAR 2 or FIRST YEAR if no IPPE) [code = MEDICARE ANNUAL WELLNESS (YEAR 2 or FIRST YEAR if no IPPE)] [facility] Future Scheduled Test 2003-10-14 00:00:00 PNEUMOCOCCAL 65+ Y RS (2 of 2 - PPSV23) [code = PNEUMOCOCCAL 65+ YRS (2 of 2 - PPSV23)] [facility] Encounters Start Date/Time End Date/Time Encounter Type Admission Type Attendi [facility] Care Department Encounter ID Source 2019-10-21 23:20:00 2019-10-22 01:36:00 Departed Emergency Room [facility] [id number] [facility] Results Test Description Test Time Test Comments Results Result Comments Source CHEST SINGLE (PORTABLE) 2020-06-23 10:50:00 [facility] 1940 [facility] [address] [address] Patient Name: ALICIA HAYNES MR #: [id number] : 1940 Age/Sex: 79/F Req #: [id number] Adm Physician: Ordered by: DARIAN SEBASTIAN MD Report #: [id number] Location: ER Room/Bed: Procedure: [id number] DX/CHEST SINGLE (PORTABLE) Exam Date: 06/23/20 Exam Time: 1034 REPORT STATUS: Signed EXAMINATION: CHEST SINGLE (PORTABLE) INDICATION: Shortness of breath COMPARISON: None FINDINGS: LINES/TUBES:EKG leads overlie the chest. LUNGS:The lungs are well-inflated. No focal consolidation or pulmonary edema. PLEURA:No pleural effusion or pneumothorax. MEDIASTINUM:The cardiomediastinal silhouette appears normal in size and shape. Atherosclerotic calcifications of the thoracic aorta. BONES/SOFT TISSUES:No acute osseous injury. ABDOMEN:No free air under the diaphragm. IMPRESSION: No focal pneumonia or pulmonary edema. Signed by: Logan Mendiola MD on 06/23/2020 10:51 AM Dictated By: LOGAN MENDIOLA MD 1051 Transcribed By: LUTHER on 06/23/201050 COPY TO: DARIAN SEBASTIAN MD URINALYSIS COMPLETE 2019-07-25 21:38:00 Test Item UA [...] SEEN #/HPF NONE Urine Source? Clean CatchURINALYSIS [id number] 21:37:00* Test Item Value Reference Range Interpretation [...] HPF NONE Urine Source? Clean CatchBASIC METABOLIC [id number] 21:04:00* Test Item Value Reference Range Interpretation [...] CA) 8.5 mg/dL 8.5-10.1 N HEPATIC FUNCTION [id number] 21:04:00* Test Item Value Reference Range Interpretation [...] due to change in reagent. BASIC METABOLIC [id number] 20:54:00* Test Item Value Reference Range Interpretation [...] code = CA) mg/dL 8.5-10.1 HEPATIC FUNCTION [id number] 20:54:00* Test Item Value Reference Range Interpretation [...] code = ALKP) IUnit/L 45-117 CBC W/O [id number] 20:51:00* Test Item Value Reference Range Interpretation [...] = MPV) 9.2 fL 6.7-11.0 N PROTHROMBIN [id number] 20:49:00* Test Item Value Reference Range Interpretation [...] heart valves (2.5-3.5) IS PATIENT ON ANTICOAGULANTS? [facility] W/O [id number] 20:46:00* Test Item Value Reference Range Interpretation [...] 700) 239 pg/mL 0-100 H RAPID TROPONIN [id number] 12:27:00* Test Item Value Reference Range Interpretation Comments RAPID TROPONIN I (BEAKER) (test code = 1483) < ng/mL <0.05 BASIC METABOLIC [id number] 12:26:00* Test Item Value Reference Range Interpretation [...] GFR IS NOT APPLICABLE FOR DIALYSIS PATIENTS. [id number] 12:26:00* Test Item Value Reference Range Interpretation Comments MAGNESIUM (BEAKER) (test code = 627) 1.7 mg/dL 1.5-3.0 PT/[id number] 12:26:00* Test Item Value Reference Range Interpretation [...] mechanical heart valves.CBC W/PLT COUNT & AUTO [id number] 12:19:00* Test Item Value Reference Range Interpretation [...] 00-0.20 RAD, CHEST, PA OR AP, 1 [id number] 12:17:00Reason for exam:-> palpitationsShould this be performed at the bedside?->NoFINAL REPORT INDICATION: palpitations COMPARISON: June 23, 2010 TECHNIQUE: Single frontal view of the chest. FINDINGS: Lungs and pleura: Clear lungs. No effusion.Heart and mediastinum: Normal heart size. Unremarkable mediastinal contours.Osseous structures: No acute abnormality.Other: None. IMPRESSION: No acute intrathoracic abnormality. Signed: JR Miles Robert MDReport Verified Date/Time: 05/02/2019 12:17:02 Reading Location: [facility] Radiology Reading Room UE [id number] 07:57:00Surgical Pathology Report Case: [id number] Authorizing Provider: Omar Chaudhry MD Collected: 04/19/2017 1158 Ordering [facility] Received: 04/19/2017 1249 SERVICES Pathologist: Tamara Ibrahim MD Specimens: A) - Breast, Right, right breast lumpectomy, short stitch superior, long stitch lateral B) - Lymph Node, [place], Right Axilla, right axillary sentinel lymph node REASON FOR ADDENDUM: TO REPORT ONCOTYPE RESULT.RECURRENCE SCORE RESULT: 1510-YEAR RISK OF DISTANT RECURRENCE: ADAIR ALONE 9% Addendum electronically signed by Tamara [...] TREJO-CYTOKERATIN IMMUNOSTAIN Signing Pathologist Direct Phone Line: [phone] signed by Tamara Ibrahim MD on 04/25/2017 [...] without image-guided localizati on Lymph Node Sampling: [place] lymph node(s) Specimen Laterality: Ri ghtTUMOR Presence of Invasive Carcinoma: Histologic Type: Invasive lobular carcinoma Histologic Grade (Deb Histologic Score): Glandular (Acinar) / Tubular Differentiation: [...] present in specimenLYMPH NODES Regional Lymph Nodes: [place] Node Status: [place] lymph node biopsy performed Number of [place] Nodes Examined: Specify number: 2 Method of Evaluation of [place] Lymph Nod e(s): H&E, multiple levels Method of Evaluation of [place] Lymph Node(s): Immunohistochemistry Number of Lymph Node(s) [...] No regional lymph node metastasis identified histologicallyA. 24763G. 46442, 40978, 59909Earmls cancer upper outer quadrant of right female [...] medial to lateral into 9 slices. A qch-lyy-xkavn, irregular, firm lesion is identified in slices [...] code: Superior-blue, inferior-red, posterior- black, anterior-yellow.Section code: risk control representative sections are submitted as olayinka schmidt. [...] and its performance characteristi cs determined by [facility], Pathology Laboratory. It has not been cleared [...] to perform high complexity clinical laborator y testing.[facility], Department of Pathology, [address] [place] [address], ONXIRCPYJGI TIME/[id number] 10:32:00* Test Item Value Reference Range Interpretation [...]
[2020-06-23 13:42] VITALS: BP 153/56
== END 2020-06-23 14:14 | disposition home or self-care (01) | DRG 293 ==
LOC: ER 10:20 → ERHOLD 12:03
PROVIDERS: ADMIT Internal Medicine; ATTEND Internal Medicine
DX: I11.0 Hypertensive heart disease with heart failure (principal); I50.9 Heart failure, unspecified; Z20.828 Contact with and (suspected) exposure to other viral communicable diseases
CPT/HCPCS: 36415; 71045; 80053; 81001; 82550; 82553; 83880; 84484; 85025; 85610; 85730; 87086; 93005; 93306; 99284; J1940; U0002